=== PATIENT | female | born 1980 | race African-American/Black ===

== ENCOUNTER 2020-01-23 15:41 | Emergency (ER) | payer OTHER, SELFPAY ==
--- NOTE | ~2020-01-23 | XR_ITS ---
XR knee RT min 4V 01/23/2020 16:35 Indication: Right knee pain after twisting injury Procedure: 4 views right knee Comparison: No prior studies for comparison. Findings: There is mild osteoarthritis of the right knee. Small joint effusion. No acute fracture or traumatic malalignment. No foreign bodies in the soft tissues. Impression: 1: No acute fracture. 2: Small joint effusion. Reviewed, dictated and finalized at location A. Impression: 1: No acute fracture. 2: Small joint effusion.
[2020-01-23 15:55] VITALS: BP 140/69; PULSE 81; RESP 20; TEMP 36.9; O2SAT 100
[2020-01-23] MEDS: KETOROLAC (*BKC) 60 MG/2 ML VIAL IM (16:34)
[2020-01-23] MEDS: predniSONE 20 MG TABLET 60 MG PO (16:34)
--- NOTE | 2020-01-23 16:45 | PC.NURSE ---
Dr Biswas spoke with Dr Thibodeaux
--- NOTE | 2020-01-23 17:42 | ED.LOWEXIN ---
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 Patient states she has a couple day history of diffuse knee and proximal tib-fib swelling and pain, it is mild, worse with motion, better at rest. No known direct trauma, shortness of breath, chest pain, redness. She recalls she may have twisted it about a week ago, and symptoms really began yesterday after work. Discussed possible causes [vascular, orthopedic, etc.], and will consult emergency for consideration for vascular causes Related Data Allergies Allergy/AdvReac Type Severity Reaction Status Date / Time No Known Allergies Allergy Verified 01/26/20 14:20 Review of Systems Review of Systems: Narrative: General/Constitutional: No weight loss,fever Eyes: N0: Redness,discharge Ears/Nose/Throat: No: Epistaxis,ear discharge Respiratory: Denies: Hemoptysis Gastrointestinal: No Vomiting, Bleeding-rectal Skin: No Lumps, eruption Neurologic: No Focal Weakness,Sz Hematologic: Denies: Petechiae/Purpura Psychiatric: No: Suicida ideationl All Other Systems: Reviewed and Negative PMFSH Past Medical History Medical History (Updated 01/27/20 @ 08:39 by Kristina Edwards, RT(R)) Acute medial meniscus tear of right knee Arthritis Seasonal allergies Vision abnormalities Family History Family History (Updated 01/27/20 @ 08:44 by Kristina Edwards RT(R)) Other Arthritis Diabetes mellitus Hypertension Social History Social History (Updated 01/27/20 @ 08:44 by Kristina Edwards, RT(R)) Smoking status: Former smoker Smoking end date: 06/23/07 Alcohol intake: current Drinks per week: 2 Gender identity (if verbalized by the patient): Female Comments At time of signature, agree with nursing past medical, surgical, social and family history. There is no relevant family history pertinent to the presenting complaint Exam Narrative: Exam Narrative: General Appearance: Obese/ Well nourished, No distress, antalgic gait EYE: PERRLA, EOMI, Conjunctiva clear Mouth/Throat: Normal appearing, Normal lips Supple Respiratory: Airway patent, No respiratory distress Skin: Warm, Dry, Normal color, diffuse edema of the right knee extending to upper ankle MS knee: Normal strength (mostly intact, limited flexion/extension by pain), Tenderness (bilateral joint lines, with mild decreased ROM), Swelling (diffusely), Other (no anterior drawer, no collateral laxity, unable to do Vivian Neurological: A&O x3, Speech clear, Normal affect Course Course Emergency Course: Films visualized, interpreted by radiologist, agree, mildly ABnormal see report Vital Signs Vital signs: Vital Signs Temperature 98.4 F 01/23/20 15:55 Pulse Rate 81 01/23/20 15:55 Respiratory Rate 20 01/23/20 15:55 Blood Pressure 140/69 01/23/20 15:55 Pulse Oximetry 100 01/23/20 15:55 Temperature 98.4 F 01/23/20 15:55 Pulse Rate 81 01/23/20 15:55 Respiratory Rate 20 01/23/20 15:55 Blood Pressure 140/69 01/23/20 15:55 Pulse Oximetry 100 01/23/20 15:55 Discharge Plan Discharge Clinical Impression: Derangement of knee, right Patient Disposition: Acute Care Hospital Condition: Stable Prescriptions: No Action tramadol 50 mg tablet 50 mg PO Q6H PRN (Reason: pain) Qty: 20 RF: 1 meloxicam [Mobic] 15 mg tablet 15 mg PO DAILY Qty: 30 RF: 1 Follow-up/Referrals: Arnaldo,Garth August MD [Primary Care Provider] - Discharge Date/Time: 01/23/20 16:53
== END 2020-01-23 16:53 | disposition short-term general hospital (02) ==
LOC: EXPGLEN 15:46
PROVIDERS: Emergency Provider Emergency Medicine; PCP Internal Medicine
DX: M23.91 Unspecified internal derangement of right knee (principal)
CPT/HCPCS: 73564; 96372; 99213; G0463; J1885; J7512

== ENCOUNTER 2020-01-23 17:39 | Emergency (ER) | payer OTHER, SELFPAY ==
--- NOTE | 2020-01-23 17:40 | PC.NURSE ---
Patient arrives to ed with her two kids with her. Informed her of current hospital policy regarding children who aren't being seen. patient reports she is going ot take them home and will be back.
== END 2020-01-23 17:40 | disposition left against medical advice (07) ==
PROVIDERS: PCP Internal Medicine
DX: Z53.21 Procedure and treatment not carried out due to patient leaving prior to being seen by health care provider (principal)
CPT/HCPCS: 99199

== ENCOUNTER 2020-01-23 18:27 | Emergency (ER) | payer OTHER, SELFPAY ==
[2020-01-23 18:36] VITALS: BP 150/76; PULSE 89; RESP 18; TEMP 36.7; O2SAT 97
[2020-01-23 19:11] LABS: Basophils Percent Auto 0.3 % (0.2-1.2); Eosinophils Absolute Auto 0.2 K/mm3 (0-0.3); Eosinophils Percent Auto 1.4 % (0-4.4); Hematocrit 34.6 % (37.0-47.0); Hemoglobin 11.1 g/dL (12.0-15.0); Immature Granulocyte Absolute 0.04 K/mm3 (0.00-0.031); Immature Granulocyte Percent A 0.3 % (0-0.5); Lymphocytes Absolute Auto 2.35 K/mm3 (0.9-3.2); Lymphocytes Percent Auto 19.3 % (18.3-44.2); Mean Corpuscular HGB Conc 32.1 g/dl (32-36); Mean Corpuscular Hemoglobin 26.6 pg (26-34); Mean Corpuscular Volume 82.8 fl (80-100); Mean Platelet Volume 9.5 fl (7.4-10.4); Monocytes Absolute Auto 0.6 K/mm3 (0.1-0.6); Monocytes Percent Auto 4.9 % (2.6-8.5); Neutrophils Percent Auto 73.8 % (45.5-73.1); Platelet Count Result 294 k/mm3 (150-375); Red Blood Count 4.18 M/mm3 (4.2-5.4); Red Cell Distribution Width 13.5 % (11.5-14.5); White Blood Count 12.2 K/mm3 (4.5-10.0)
--- NOTE | 2020-01-23 19:14 | PC.NURSE ---
assumed care of pt at this time, recieved report from brandee hughes.
[2020-01-23 19:23] LABS: Alanine Aminotransferase 18 U/L (4-35); Albumin Level 3.8 g/dL (3.5-5.1); Alkaline Phosphatase 65 U/L (38-126); Aspartate Amino Transferase 19 U/L (14-36); Bilirubin,Total 0.2 mg/dL (0.2-1.3); Blood Urea Nitrogen 18 mg/dL (7-17); Calcium 8.5 mg/dL (8.4-10.2); Carbon Dioxide 24 mmol/L (22-30); Chloride 105 mmol/L (98-107); Estimated CRCL calculation 110 ml/min; Estimated Glomerular Filt Rate > 60; Glucose 123 mg/dL (65-105); Sodium 138 mmol/L (137-145)
[2020-01-23 19:24] LABS: Prothrombin Time 13.3 Seconds (11.1-14.7)
[2020-01-23 19:25] LABS: Partial Thromboplastin Time 25.8 SECONDS (22.3-36.8)
[2020-01-23 19:29] LABS: D Dimer 0.22 ug/mL (<0.48)
[2020-01-23] MEDS: KETOROLAC 30 MG/ML VIAL (*BKC) IM (20:10)
--- NOTE | 2020-01-23 20:14 | ED.LOWEXIN ---
HPI - Extremity Injury (Lower) General Chief Complaint: Extremity Injury, Lower Stated Complaint: possible dvt, from express care Time Seen by Provider: 01/23/20 18:59 Source: patient Mode of arrival: ambulatory Limitations: no limitations History of Present Illness HPI Narrative: Patient presents for evaluation of her right lower leg after having sudden onset of swelling from her right knee distally that began yesterday. Patient states that she went to the [facility] for evaluation and was told that she needed to present to the emergency department to rule out a DVT. Patient states that she is not short of breath nor has she had chest pain. Patient reports that she has trouble bearing weight on the right knee. Patient reports that she feels a pressure inside of the knee. She denies any known direct trauma. 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 Patient denies taking any control pills, having cancer or having history of DVT or PE. She states the pain is located mostly to the posterior and anterior aspects of her knee and not as much to her calf although there is swelling noted in her right calf is greater than the left. Related Data Allergies Allergy/AdvReac Type Severity Reaction Status Date / Time No Known Allergies Allergy Verified 03/17/18 12:14 Review of Systems Review of Systems: Narrative: CONSTITUTIONAL: Denies fever, chills, or sweats. EYES: Denies visual changes, redness, or discharge. ENT: Denies rhinorrhea, congestion, sore throat, or otalgia. CARDIOVASCULAR: Denies chest pain, palpitations, or edema. RESPIRATORY: Denies cough or dyspnea. GASTROINTESTINAL: Denies abdominal pain, nausea, vomiting, or diarrhea. GENITOURINARY: Denies dysuria or hematuria. SKIN: Denies rash or itching. MUSCULOSKELETAL: Reports right leg swelling and right knee pain denies back pain, joint pain, or myalgia. NEUROLOGIC: Denies headache, numbness, dizziness, or weakness. PSYCHIATRIC: Denies anxiety or depression. PMFSH Social History Social History Gender identity (if verbalized by the patient): Female Exam Narrative: Exam Narrative: GENERAL: Well-appearing, well-nourished, and in no acute distress. HEAD: Normocephalic, atraumatic. EYES: PERRLA and EOMI. ENT: Nares clear, no rhinorrhea or epistaxis. Mucous membranes moist. Oropharynx without tonsillar hypertrophy exudate or other lesions. Bilateral TMs pearly massey nonbulging NECK: Supple. No adenopathy or masses. HEART: Respiratory rate and rhythm. CHEST: No respiratory distress. No tachypnea noted. No wheezes rales or rhonchi is noted. EXTREMITIES: Swelling noted from right knee distally. No excessive warmth or erythema. Negative homans sign. pain to the anterior aspect of knee and posterior portion. SKIN: Warm, dry, no rash. NEURO: No focal deficits. Alert and oriented x3. PSYCH: Normal mood and affect. Course Vital Signs Vital signs: Vital Signs Temperature 98.1 F 01/23/20 18:36 Pulse Rate 89 01/23/20 18:36 Respiratory Rate 18 01/23/20 18:36 Blood Pressure 150/76 H 01/23/20 18:36 Pulse Oximetry 97 01/23/20 18:36 Temperature 98.1 F 01/23/20 18:36 Pulse Rate 89 01/23/20 18:36 Respiratory Rate 18 01/23/20 18:36 Blood Pressure 150/76 H 01/23/20 18:36 Pulse Oximetry 97 01/23/20 18:36 MDM - Extremity Injury (Lower) MDM Narrative Medical decision making narrative: D-dimer is negative. Patient does not have pain to the calf. There is effusion noted to the right knee along with osteoarthritis when reviewing x-rays taken in [facility]. Patient is given Toi wrap for support and given RICE instructions. Patient given orthopedics referral for further evaluation of the knee as well as tramadol for discomfort. Differential Diagnosis Differential diagnosis: Likely other (DVT, knee effusion, knee sprain, osteoarthritis, cellulitis) Lab Data Result diagrams: 01/23/20 1
[2020-01-23 20:47] VITALS: BP 138/78; PULSE 80; RESP 16; O2SAT 99
== END 2020-01-23 20:48 | disposition home or self-care (01) ==
PROVIDERS: Physician Assistant; Emergency Provider Family Medicine; PCP Internal Medicine
DX: M25.461 Effusion, right knee (principal); M17.11 Unilateral primary osteoarthritis, right knee
CPT/HCPCS: 36415; 73564; 80053; 85025; 85380; 85610; 85730; 96372; 99283; J1885; J7512

== ENCOUNTER 2020-02-08 07:48 | Outpatient (CLI) | payer OTHER, SELFPAY ==
--- NOTE | ~2020-02-08 | MR_ITS ---
EXAMINATION: MR knee RT wo con DATE: 02/08/2020 08:59 INDICATION: Right knee pain. TECHNIQUE: Magnetic resonance imaging (MRI) of the right knee was performed without intravenous contr ast. Sequences included axial PD-weighted FS FSE, coronal PD-weighted FSE and PD-weighted FS FSE, sag ittal PD-weighted FSE, and sagittal T2-weighted FS FSE. COMPARISON: Right knee radiographs 01/26/2020 FINDINGS: Medial compartment: Medial meniscus is normal. Medial compartment cartilage is normal. Lateral compartment: Lateral meniscus is normal. There is shallow partial-thickness cartilage loss of tibial condyle invol ving the central and posterior articular surface with mild subchondral edema-like marrow signal inten sity. Femoral cartilage is normal. There are tiny marginal osteophytes. Patellofemoral compartment: There is deep partial thickness cartilage loss of patellar medial and lateral facets and median ridge . There is deep partial thickness cartilage loss of lateral trochlea with mild subchondral edema-like marrow signal intensity. Osteophytes are noted. Ligaments and tendons: The anterior and posterior cruciate ligaments are normal. Medial collateral ligament and lateral suzanna ateral ligament complex are intact. There is mild patellar tendinopathy. Fluid: There is a small knee joint effusion. There is trace fluid in a Goff's cyst. There is mild prepatell ar and superficial infrapatellar bursitis. IMPRESSION: 1. Moderate chondrosis of patellofemoral compartment and mild chondrosis of lateral compartment. 2. Small knee joint effusion. Reviewed, dictated and finalized at location A. IMPRESSION: 1. Moderate chondrosis of patellofemoral compartment and mild chondrosis of lat eral compartment. 2. Small knee joint effusion.
== END 2020-02-08 07:49 | disposition home or self-care (01) ==
PROVIDERS: PCP Internal Medicine; Visit Provider Orthopaedic Surgery
DX: M25.461 Effusion, right knee (principal)
CPT/HCPCS: 73721

== ENCOUNTER 2020-04-12 12:30 | Outpatient (RCR) | payer OTHER, SELFPAY ==
--- NOTE | 2020-02-23 13:54 | PTOPEVAL ---
Thank you for referring Lizbeth Murcia to [facility].? The patient is scheduled to be seen for therapy? 2 x/week for 6-8 weeks. Please review, sign, date and return this plan of care SOPHIE. I agree with and certify that the following plan of care is medically necessary. Referring Physician Date Admitting Provider: Attending Provider: Bertin Mathur MD Physical Therapy Evaluation *PT Outpatient Evaluation Start: 02/23/20 12:44 Freq: Status: Active Protocol: Document 02/23/20 12:48 ADALBERTO (Rec: 02/23/20 13:30 ADALBERTO [id number]) Therapy Assessment Status Assessment Status Assessment Status Evaluation Outpatient Past Medical History Past Medical History Source of Past Medical History Patient Neurological History Hx Neurological Disorders No Significant History Cardiovascular History Hx Cardiac Disorders No Significant History Respiratory History Hx Respiratory Disorders No Significant History Gastrointestinal History Hx Gastrointestinal Disorders No Significant History Musculoskeletal History Hx Arthritis Yes: low back Hx Back Pain Yes Hx Other Musculoskeletal Disorders Yes: left ankle surgery for ligament repair 2016 Evaluation Information Problem Diagnosis right knee pain Onset Jan 28 Cause unknown Additional Evaluation Detail Went to Urgent Care weekend of 01/29/20 due to right knee locking up. She performs a 1 mile walking program every other day. She received therapy 4 yrs ago after left ankle surgery. States she was told to walk with her toes out. She has gained 40# from her ankle surgery. Subjective Information She reports she had increased Query Text:As Reported By Patient/ right knee pain following work Family . States her knee locked up. 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 She will have increased pain and stiffness with prolonged sitting in the truck. She is able to alexandra sitting for a few hours before the pain increases. Reports the knee feels like it is going to give out . Reports a progressive difficulty with
--- NOTE | 2020-03-08 12:49 | PCPTNOTE ---
Patient called & cancelled scheduled appointment this date due to not having a sitter.
--- NOTE | 2020-03-27 13:37 | PTOPEVAL ---
Thank you for referring Lizbeth Murcia to [facility].? The patient is scheduled to be seen for therapy? 2 x/week for 4-6 weeks. Please review, sign, date and return this plan of care SOPHIE. I agree with and certify that the following plan of care is medically necessary. Referring Physician Date Admitting Provider: Attending Provider: Bertin Mathur MD *PT Outpatient Evaluation Start: 02/23/20 12:44 Freq: Status: Active Protocol: Document 03/27/20 11:08 ADALBERTO (Rec: 03/27/20 11:51 ADALBERTO [id number]) Therapy Assessment Status Assessment Status Assessment Status Re-evaluation Evaluation Information Problem Diagnosis right knee pain Onset Jan 28 Cause unknown Additional Evaluation Detail Went to Urgent Care weekend of 01/29/20 due to right knee locking up. She performs a 1 mile walking program every other day. She received therapy 4 yrs ago after left ankle surgery. States she was told to walk with her toes out. She has gained 40# from her ankle surgery. Subjective Information She denies right knee locking Query Text:As Reported By Patient/ up since starting therapy. She Family has left knee pain with getting in/out of truck. 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 She has longer runs during the week, but more in/out on Sat. Reports cont difficulty getting off low surfaces. Reports pain with negotiating the steps at home. States she is walking her dog for 25min without increased pain. She is more aware of knee position and posture with daily act Pain Assessment Timing of Pain Assessment Timing of Pain Assessment Re-assessment Pain Scale Pain Scale Used Numeric (1 - 10) Self Report Pain Assessment Left Knee(s) Reported Pain Level 6 Pain Description Aching,Dull Pain Frequency Chronic,Continuous Lowest Pain Intensity 4 Greatest Pain Intensity 8 Pain Aggravating Factors
--- NOTE | 2020-04-03 09:09 | PCPTNOTE ---
Patient did not show up for scheduled appointment this date.
--- NOTE | 2020-04-17 11:20 | PCPTNOTE ---
Patient did not show up for scheduled appointment this date. Called pt and left message regarding next visit.
--- NOTE | 2020-04-19 13:09 | PCPTNOTE ---
Patient did not show up for scheduled appointment this date. Called Pt, left voicemail reminding of upcoming appointment on Fri04/24/20 at 12:30, requested Pt to call back and confirm appointment. Pt has no-showed three times.
--- NOTE | 2020-04-24 13:00 | PCPTNOTE ---
Patient did not show up for scheduled appointment this date. Called patient, she answered, then when I told her how I was she hung up. Called back and left a message, explaining to her that since this was her 3rd no show, that per our policy we will cancel the rest of her appointments.
--- NOTE | 2020-04-28 10:58 | PCPTNOTE ---
Admitting Provider: Attending Provider: Bertin Mathur MD Patient:Lizbeth Murcia Date of :1980 Discharge Note Patient has not returned for any further treatments since 04/12/2020, therefore she will be discharged at this time. Patient?s initial visit was on 02/23/2020 12:30 and she had a total of 11 visits with 5 no show or cancelled visits.. The goals have been partially met at this time. Thank you for referring this patient to [facility]. Please review, sign, date and return this discharge summary SOPHIE. I have been updated about the patient's current status and I agree with discharge from the above service at this time. Referring Physician Date
== END 2020-04-28 12:09 | disposition home or self-care (01) ==
LOC: ANHPT 12:30
PROVIDERS: PCP Internal Medicine; Visit Provider Orthopaedic Surgery
DX: M25.561 Pain in right knee (principal); M25.461 Effusion, right knee
CPT/HCPCS: 97035; 97110; 97140; 97162; 97530

== ENCOUNTER 2020-11-22 18:39 | Emergency (ER) | payer OTHER, SELFPAY ==
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
[2020-11-22 18:51] VITALS: BP 139/67; PULSE 67; RESP 14; TEMP 36.1; O2SAT 99
[2020-11-22] MEDS: KETOROLAC 30 MG/ML VIAL (*BKC) IV PUSH (19:35)
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
[2020-11-22 19:44] LABS: Hemoglobin 11.7 g/dL (12.0-15.0); Mean Corpuscular HGB Conc 31.6 g/dl (32-36); Mean Corpuscular Hemoglobin 27.2 pg (26-34); Mean Platelet Volume 9.6 fl (7.4-10.4); Platelet Count Result 345 k/mm3 (150-375); Red Cell Distribution Width 13.1 % (11.5-14.5); White Blood Count 11.3 K/mm3 (4.5-10.0)
[2020-11-22 19:53] LABS: INR 0.9; Prothrombin Time 12.3 Seconds (11.1-14.7)
[2020-11-22 20:00] LABS: Alanine Aminotransferase 23 U/L (4-35); Albumin Level 3.9 g/dL (3.5-5.1); Alkaline Phosphatase 65 U/L (38-126); Anion Gap 9 mmol/L (8-16); Aspartate Amino Transferase 27 U/L (14-36); Bilirubin,Total 0.1 mg/dL (0.2-1.3); Blood Urea Nitrogen 14 mg/dL (7-17); Calcium 9.3 mg/dL (8.4-10.2); Carbon Dioxide 25 mmol/L (22-30); Chloride 107 mmol/L (98-107); Estimated CRCL calculation 154 ml/min; Estimated Glomerular Filt Rate > 60; Glucose 108 mg/dL (65-105); Potassium 3.9 mmol/L (3.4-5.0); Sodium 141 mmol/L (137-145)
[2020-11-22 20:05] LABS: Band Neutrophils Percent 1 % (0-6); Eosinophils Absolute Manual 0.11 K/mm3 (0.02-0.5); Eosinophils Percent Manual 1 % (0-4); Lymphocytes Absolute Manual 4.63 K/mm3 (1.1-4.5); Monocytes Absolute Manual 0.45 K/mm3 (0.1-0.90); Monocytes Percent Manual 4 % (3-9); Neutrophils Percent Manual 53 % (46-73); Total Cells Counted 100
[2020-11-22 20:06] LABS: Hypochromasia 1+ (NORMAL); Platelet Estimate Adequate (Adequate)
[2020-11-22] MEDS: LACTATED RINGERS 1,000 ML 999 ML IV CONT (20:08)
[2020-11-22 22:52] LABS: Add Urine Microscopic? YES; Appearance Urine Cloudy (Clear); Bacteria Urine 2+ /hpf; Bilirubin Urine Negative (Negative); Blood Urine Negative (Negative); Color Urine Yellow (Yellow); Glucose Urine UA Negative (Negative); Ketones Urine Negative (Negative); Leukocyte Esterase Ur Trace LEU/UL (Negative); Mucus Urine Rare /lpf; Nitrate Urine Positive (Negative); Protein Urine 1+ mg/dL (Negative); RBC Urine 0-2 /hpf (0-2); Specific Grav Ur 1.025 (1.001-1.035); Squamous Epithelial Cell Urine Rare /hpf (Few); Urobilinogen Urine Negative mg/dL (<2.0)
[2020-11-22 23:02] VITALS: BP 144/56; PULSE 60; RESP 18; O2SAT 99
== END 2020-11-22 23:03 | disposition home or self-care (01) ==
PROVIDERS: Emergency Provider General Practice; PCP Internal Medicine
DX: S30.1XXA Contusion of abdominal wall, initial encounter (principal); M19.90 Unspecified osteoarthritis, unspecified site; Z87.891 Personal history of nicotine dependence; K57.90 Diverticulosis of intestine, part unspecified, without perforation or abscess without bleeding; Y04.2XXA Assault by strike against or bumped into by another person, initial encounter
CPT/HCPCS: 36415; 71101; 74177; 80053; 81001; 81025; 85025; 85610; 85730; 96361; 96374; 99284; J1885; J7120; Q9967

== ENCOUNTER 2023-01-09 13:54 | Emergency (ER) | payer BC, SELFPAY ==
[2023-01-09] VITALS (10 sets, daily range): BP systolic 125–126; BP diastolic 68–77; PULSE 79; RESP 20; TEMP 36.4; O2SAT 96–100
--- NOTE | ~2023-01-09 | CT_ITS ---
EXAMINATION: CT abdomen pelvis w con DATE: 01/09/2023 17:21 INDICATION: Right flank TTP, UTI (+) TECHNIQUE: Computed tomography (CT) of the abdomen and pelvis was performed with 100 mL Omnipaque-350 intravenous contrast. Automated exposure control and iterative reconstruction technique were employe d. The dose-length product was 1695.05 mGy-cm. COMPARISON: 11/22/2020. FINDINGS: Lower thorax: Unremarkable Liver: Hepatomegaly. Biliary/Gallbladder: Gallbladder is absent. No bile duct dilation. Pancreas: No mass or duct dilation. Spleen: Normal. Adrenals:No mass. Kidneys: No mass, stone, or hydronephrosis. GI tract: No small or large bowel dilation. Normal appendix. Mild diverticulosis without diverticulit is. Mesentery/Peritoneum: No ascites, mass, or free air. Minimal retroperitoneal stranding and prominent retroperitoneal lymph nodes, not significant changed. Retroperitoneum: No mass. Pelvis: Surgically absent uterus, pelvic organs are otherwise within normal limits. Soft Tissues: Soft tissues and body wall unremarkable. Bones: No acute osseous finding. IMPRESSION: Marked hepatomegaly. Otherwise unremarkable CT abdomen and pelvis findings. Reviewed, dictated and finalized at location K.
[2023-01-09 14:25] LABS: Basophils Percent Auto 0.3 % (0.2-1.2); Eosinophils Absolute Auto 0.2 K/mm3 (0-0.3); Eosinophils Percent Auto 1.8 % (0-4.4); Hematocrit 35.1 % (37.0-47.0); Hemoglobin 11.1 g/dL (12.0-15.0); Immature Granulocyte Absolute 0.03 K/mm3 (0.00-0.031); Immature Granulocyte Percent A 0.3 % (0-0.5); Lymphocytes Absolute Auto 3.19 K/mm3 (0.9-3.2); Lymphocytes Percent Auto 32.3 % (18.3-44.2); Mean Corpuscular HGB Conc 31.6 g/dl (32-36); Mean Corpuscular Hemoglobin 27.3 pg (26-34); Mean Corpuscular Volume 86.5 fl (80-100); Mean Platelet Volume 9.4 fl (7.4-10.4); Monocytes Absolute Auto 0.7 K/mm3 (0.1-0.6); Monocytes Percent Auto 6.6 % (2.6-8.5); Neutrophils Absolute Auto 5.8 K/mm3 (1.3-6.7); Neutrophils Percent Auto 58.7 % (45.5-73.1); Platelet Count Result 290 k/mm3 (150-375); Red Blood Count 4.06 M/mm3 (4.2-5.4); Red Cell Distribution Width 13.2 % (11.5-14.5); White Blood Count 9.9 K/mm3 (4.5-10.0)
[2023-01-09 14:35] LABS: Alanine Aminotransferase 25 U/L (6-35); Albumin Level 3.9 g/dL (3.5-5.1); Alkaline Phosphatase 61 U/L (38-126); Anion Gap 4 mmol/L (8-16); Aspartate Amino Transferase 25 U/L (14-36); Bilirubin,Total 0.4 mg/dL (0.2-1.3); Blood Urea Nitrogen 9 mg/dL (7-17); Calcium 8.5 mg/dL (8.4-10.2); Carbon Dioxide 28 mmol/L (22-30); Chloride 106 mmol/L (98-107); Estimated CRCL calculation 161 ml/min; Estimated Glomerular Filt Rate > 60; Glucose 112 mg/dL (65-110); Potassium 3.6 mmol/L (3.4-5.0); Sodium 138 mmol/L (137-145)
[2023-01-09 16:08] LABS: Appearance Urine Cloudy (Clear); Bacteria Urine 4+ /hpf; Bilirubin Urine Negative (Negative); Blood Urine Trace (Negative); Color Urine Yellow (Yellow); Glucose Urine UA Negative (Negative); Ketones Urine Negative (Negative); Leukocyte Esterase Ur 2+ LEU/UL (Negative); Nitrate Urine Positive (Negative); Non Pathogenic Casts 0-2; Protein Urine Negative (Negative); RBC Urine 0-2 /hpf (0-2); Specific Grav Ur 1.017 (1.001-1.035); Squamous Epithelial Cell Urine None seen /hpf (Few); Urobilinogen Urine 0.2 mg/dL (<2.0); WBC Urine 21-50 /hpf; pH Urine 5.5 (5.0-9.0)
[2023-01-09 16:10] LABS: Add Urine Microscopic? YES
--- NOTE | 2023-01-09 16:39 | ED.GENADULT ---
HPI - General Adult General Chief complaint: Back Pain/Injury Stated complaint: back pain Time Seen by Provider: 01/09/23 15:41 Source: patient Mode of arrival: ambulatory Limitations: no limitations History of Present Illness HPI narrative: This is a 42-year-old female who presents to the ED with chief complaint of right lower back and flank pain beginning 2 days ago. She reports it radiates into the right lower quadrant and right side of the abdomen. She states it has been tolerable for the past couple of days but significantly worse today. She states she has some episodes of urinary frequency and dark urine but no dysuria or hematuria. She reports history of lumbar degenerative disc disease but states this feels different. It is not worsened with certain movements. Endorses associated mild nausea. Denies fevers, chills,, vomiting, chest pain, shortness of breath. Related Data Allergies Allergy/AdvReac Type Severity Reaction Status Date / Time No Known Allergies Allergy Verified 11/22/20 18:59 PMFSH Past Medical History Medical History (Updated 01/09/23 @ 17:54 by Dav Sears PA-C) Acute medial meniscus tear of right knee Arthritis Seasonal allergies Vision abnormalities Surgical History Surgical History (Updated 11/22/20 @ 22:47 by Carlyn Montalvo MD) History of hysterectomy Hx of cholecystectomy Family History Family History (Updated 01/27/20 @ 08:44 by Kristina Edwards, RT(R)) Other Arthritis Diabetes mellitus Hypertension Social History Social History (Updated 01/27/20 @ 08:44 by Kristina Edwards RT(R)) Smoking status: Former smoker Smoking end date: 06/23/07 Alcohol intake: current Drinks per week: 2 Gender identity (if verbalized by the patient): Female Exam Narrative: GENERAL: Well-appearing, well-nourished, and in no acute distress. HEAD: Normocephalic, atraumatic. EYES: PERRLA and EOMI. ENT: Nares clear, no rhinorrhea or epistaxis. Mucous membranes moist. Oropharynx without tonsillar hypertrophy exudate or other lesions. NECK: Supple. No adenopathy or masses. CHEST: No respiratory distress. Clear to auscultation. No wheezes rales or rhonchi HEART: Regular rate and rhythm. No murmur heard. Normal peripheral pulses. ABDOMEN: Soft, nontender, nondistended, normal active bowel sounds. MSK: Normal range of motion. No edema. SKIN: Warm, dry, no rash. NEURO: Alert and oriented x3. No focal deficits. PSYCH: Normal mood and affect. Course Vital Signs Vital signs: Vital Signs Temperature 97.6 F 01/09/23 14:05 Pulse Rate 79 01/09/23 14:05 Respiratory Rate 20 01/09/23 14:05 Blood Pressure 125/77 01/09/23 14:05 Pulse Oximetry 98 01/09/23 14:05 Oxygen Delivery Room Air 01/09/23 14:05 Temperature 97.6 F 01/09/23 14:05 Pulse Rate 79 01/09/23 14:05 Respiratory Rate 20 01/09/23 14:05 Blood Pressure 126/68 01/09/23 15:45 Pulse Oximetry 100 01/09/23 18:00 Oxygen Delivery Room Air 01/09/23 14:05 Medical Decision Making MDM Narrative Medical decision making narrative: This is a 42-year-old female who presents to the ED with chief complaint of right flank pain and right-sided abdominal pain onset x4 days. Vitals are normal. Afebrile. Minimal tenderness throughout the right flank and right lower quadrant. UA shows overt infection with positive nitrites. White blood cell count is normal on the CBC. CMP is unremarkable. She improved greatly with morphine, Zofran and, fluids here in the ED. CT scan of the abdomen pelvis with IV contrast Marked hepatomegaly. Otherwise unremarkable CT abdomen and pelvis findings.. Ruled out ureteral calculus. No perinephric stranding. She has no fevers and no severe pain. No vomiting during her stay. She will be discharged in stable condition and treated for UTI. Supportive measures discussed and return precautions given. Patient is understanding and agreeable with plan for di
[2023-01-09] MEDS: MORPHINE SULFATE (*CRX) 4 MG/ML INJ IV PUSH (17:00)
[2023-01-09] MEDS: SODIUM CHLORIDE 0.9% IV 1,000 ML 999 ML IV CONT (17:00)
[2023-01-09] MEDS: ONDANSETRON INJ 4 MG/2 ML VIAL IV PUSH (17:00)
[2023-01-09 17:32] LABS: Pregnancy On Board Control Positive; Urine Pregnancy Test Negative
== END 2023-01-09 18:15 | disposition home or self-care (01) ==
PROVIDERS: Emergency Medicine; Emergency Provider Physician Assistant; PCP Internal Medicine
DX: N39.0 Urinary tract infection, site not specified (principal); M19.90 Unspecified osteoarthritis, unspecified site; Z90.710 Acquired absence of both cervix and uterus; Z90.49 Acquired absence of other specified parts of digestive tract; Z87.891 Personal history of nicotine dependence
CPT/HCPCS: 36415; 74177; 80053; 81001; 81025; 85025; 87077; 87086; 87186; 96361; 96374; 96375; 99284; J2270; J2405; J7030; Q9967

== ENCOUNTER 2023-01-11 20:08 | Emergency (ER) | payer BC, SELFPAY ==
[2023-01-11 20:11] VITALS: BP 140/100; PULSE 81; RESP 18; TEMP 36.3; O2SAT 98
--- NOTE | 2023-01-11 21:55 | ED.GENADULT ---
HPI - General Adult General Chief complaint: Back Pain/Injury Stated complaint: lower back pain/UTI Time Seen by Provider: 01/11/23 21:12 History of Present Illness HPI narrative: This is a 42-year-old female presenting ED with a chief complaint of lower back pain. Patient has been having lower right-sided back pain for the last 3-4 days. She says it is a squeezing or spasm like feeling in her lower back. Date out 10 intensity constant. She has had pain like this in the past but not this intense. It is significantly worse with movement and better with sitting still. She was seen here several days ago treated for urinary tract infection. She not have any urinary symptoms at that time and has no complaints right now. Patient has been taking ibuprofen 400 mg Q for with minimal relief. Patient denies high risk factors for back pain including fever chills trauma IV drug abuse cancer urinary retention or bowel incontinence Related Data Allergies Allergy/AdvReac Type Severity Reaction Status Date / Time No Known Allergies Allergy Verified 01/11/23 20:09 [facility] Past Medical History Medical History Acute medial meniscus tear of right knee Arthritis Seasonal allergies Vision abnormalities Surgical History Surgical History History of hysterectomy Hx of cholecystectomy Family History Family History Other Arthritis Diabetes mellitus Hypertension Social History Social History (Updated 01/27/20 @ 08:44 by Kristina Edwards, RT(R)) Smoking status: Former smoker Smoking end date: 06/23/07 Alcohol intake: current Drinks per week: 2 Gender identity (if verbalized by the patient): Female Exam Narrative: APPEARANCE: No apparent distress. Head: atraumatic. EYES: EOMI, NOSE: Atraumatic NECK: Trachea midline RESPIRATORY: No increased rate of breathing CARDIOVASCULAR: RRR, ABDOMINAL: Non-distended, soft, no CVA tenderness MUSCULOSKELETAl: tenderness palpation in the right paralumbar muscles NEURO: Alert. Moving 4/4 extremities, can ambulate on her toes and heels without difficulty. SKIN:: Warm, dry. Normal color PSYCHIATRIC: Normal affect Course Vital Signs Vital signs: Vital Signs Temperature 97.4 F L 01/11/23 20:11 Pulse Rate 81 01/11/23 20:11 Respiratory Rate 18 01/11/23 20:11 Blood Pressure 140/100 H 01/11/23 20:11 Pulse Oximetry 98 01/11/23 20:11 Oxygen Delivery Room Air 01/11/23 20:11 Temperature 97.4 F L 01/11/23 20:11 Pulse Rate 81 01/11/23 20:11 Respiratory Rate 18 01/11/23 20:11 Blood Pressure 140/100 H 01/11/23 20:11 Pulse Oximetry 98 01/11/23 20:11 Oxygen Delivery Room Air 01/11/23 20:11 Medical Decision Making MDM Narrative Medical decision making narrative: -Presentation: 42-year-old female presenting with lower back pain. 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 -Hx from independent Sources: daughters at bedside -Independent interpretation of studies: none -Discussion of Management/Consultants: none -Dx tests considered but not ordered: -Procedures: -Interventions: Motrin, Tylenol, Robaxin, lidocaine patch. -Shared decision making / Disposition: Patient's findings are most consistent with lower back pain. She is on appropriate antibiotics for her UTI appears symptoms are not consistent with pyelo. Patient will be discharged to follow-up with her primary care physician at her appointment on Friday. -RX Motrin Tylenol Robaxin lidocaine patch Vital Signs Vital Signs: Vit
== END 2023-01-11 23:01 | disposition home or self-care (01) ==
PROVIDERS: Emergency Provider Emergency Medicine; PCP Internal Medicine
DX: S39.012A Strain of muscle, fascia and tendon of lower back, initial encounter (principal); N39.0 Urinary tract infection, site not specified; M19.90 Unspecified osteoarthritis, unspecified site; Z90.710 Acquired absence of both cervix and uterus; Z90.49 Acquired absence of other specified parts of digestive tract; Z87.891 Personal history of nicotine dependence; X58.XXXA Exposure to other specified factors, initial encounter
CPT/HCPCS: 99283; A9270